=== PATIENT | female | born 1980 | race African-American/Black ===

== ENCOUNTER 2025-03-08 00:36 | Emergency (ER) | payer OTHER, SELFPAY ==
--- NOTE | ~2025-03-08 | XR_ITS ---
CLINICAL HISTORY: cough 2 view chest x-ray Comparison: None Findings: No consolidation or effusion. Mild low lung volumes. No pneumothorax. Normal size heart. No acute fracture. IMPRESSION: No consolidation. This document has been electronically signed by: Kendell Medina MD on 03/08/2025 02:20:39
[2025-03-08 00:40] VITALS: BP 93/64; PULSE 115; RESP 16; TEMP 36.3; O2SAT 97; BMI 27.5
[2025-03-08 01:30] LABS: Influenza A PCR NEGATIVE (Negative); Influenza B PCR NEGATIVE (Negative); Resp Syncy Virus RNA Qual PCR NEGATIVE (Negative); SARS COV2 PCR INHOUSE NEGATIVE (Negative)
[2025-03-08 03:05] VITALS: O2SAT 96
[2025-03-08 03:11] VITALS: BP 100/60; PULSE 108; RESP 22; TEMP 36.6; O2SAT 96
[2025-03-08] MEDS: predniSONE 20 MG TABLET 40 MG PO (03:17)
[2025-03-08] MEDS: Amoxicillin/Potassium Clav 875 MG TABLET PO (03:17)
[2025-03-08] MEDS: Albuterol Sulfate 90 MCG 8 GM INHALER 4 PUFF INHALE (03:19)
--- NOTE | 2025-03-08 03:19 | MHC.EDTECH ---
assumed care of pt
--- NOTE | 2025-03-08 03:31 | ED_ITS ---
HPI - URI/Sore Throat General Chief Complaint: Upper Respiratory Symptoms Stated Complaint: resp symptoms Time Seen by Provider: 03/08/25 02:34 Source: patient Mode of arrival: ambulatory Limitations: no limitations History of Present Illness ED Provider: HPI Narrative: Patient is smoker been coughing for last 1 week with mucopurulent phlegm no fever no chills no change in her house no history of asthma Related Data Previous Rx's ?Medication ?Instructions ?Recorded albuterol sulfate 90 mcg/actuation 2 puff inhalation Q6H PRN 03/08/25 aerosol inhaler shortness of breath or wheezing #8.5 grams amoxicillin 875 mg-potassium 1 tab PO BID #20 tabs 03/08/25 clavulanate 125 mg tablet guaifenesin 600 mg tablet, 600 mg PO BID #20 tabs 03/08/25 extended release 12 hr (Mucinex) prednisone 20 mg tablet 40 mg (2 x 20 mg) PO DAILY #10 tabs 03/08/25 Allergies Allergy/AdvReac Type Severity Reaction Status Date / Time No Known Allergies Allergy Verified 03/08/25 00:42 Review of Systems Review of Systems: Yes all other systems are reviewed and are negative [facility] Social History Social History Smoked in Last 30 Days: Yes Use of substances other than those prescribed or required for medical reasons: No Advance Directives: No Do you have a plan to hurt others: No Plan Patient : No Physical Exam Vital Signs: Vital Signs: Last Vital Signs Temp 97.8 F 03/08/25 03:11 Pulse 108 H 03/08/25 03:11 Resp 22 H 03/08/25 03:11 BP 100/60 03/08/25 03:11 Pulse Ox 96 03/08/25 03:11 O2 Del Method Room Air 03/08/25 03:11 BMI result Body Mass Index 27.5 Appearance: Alert. Oriented X3. No acute distress. Eyes: no pallor or icterus ENT: Pharynx normal Oral Mucosa moist tympanic membrane intact no erythema, Neck: Normal inspection. Neck supple. CVS: Normal heart rate and rhythm. Pulses normal. Respiratory: No respiratory distress. Equal air entry bilateral, no wheezing/rales/rhonchi prolonged expiration Abd: soft, not tender Skin: Skin warm and dry. Normal skin color. Normal skin turgor. Extremities: No lower extremity edema, no calf tenderness Neuro: Oriented X 3. Medications Administered Discontinued Medications Generic Name Dose Route Start Last Admin Trade Name Niya PRN Reason Stop Dose Admin Albuterol Sulfate 4 puff 03/08/25 02:45 03/08/25 03:19 Albuterol Sulfate 90 Mcg 8 Gm Inhaler INHALE 03/08/25 02:46 4 puff ONCE ONE Administration Amoxicillin/Clavulanate Potassium 875 mg 03/08/25 02:45 03/08/25 03:17 Amoxicillin/Potassium Clav 875 Mg Tablet PO 03/08/25 02:46 875 mg ONCE ONE Administration Prednisone 40 mg 03/08/25 02:45 03/08/25 03:17 Prednisone 20 Mg Tablet PO 03/08/25 02:46 40 mg ONCE ONE Administration Medical Decision Making Medical Decision Making [facility] Narrative: Patient has acute bronchitis chest x-ray negative for acute COVID flu RSV negative will prescribe Augmentin prednisone inhaler Lab Data [facility] Lab Attestation statement: I reviewed the patient's lab results. Labs: Lab Results 03/08/25 Range/Units 00:47 Influenza Type A (PCR) NEGATIVE (Negative) Influenza Type B (PCR) NEGATIVE (Negative) RSV RNA Qual (PCR) NEGATIVE (Negative) SARS-CoV-2 RNA (RT-PCR) NEGATIVE (Negative) Independent Interpretation I performed an independent interpretation of an: Plain X-Ray Radiology Impression Discussion of test interpretation with radiology: I have reviewed the radiologist's reading. Radiologist Impression: [place] [id number] XRay Report Signed Patient: Juany Pichardo MR#: [id number] : 1980 Acct:[id number] Age/Sex: 44 / F ADM Date: 03/08/25 Loc: HO.ED Attending Dr: Ordering Physician: Generic ED Physician Date of Service: 03/08/25 Procedure(s): XR chest 2V Accession Number(s): [id number] cc: Generic ED Physician; Physician,None ~ CLINICAL HISTORY: cough 2 view chest x-ray Comparison: None Findings: No consolidation or effusion. Mild low lung volumes. No pneumothorax. Normal size heart. No acute fracture. IMPRESSION: No consolidation. Discharge Plan Discharge Clinical Impression: Bronchitis Patient Disposition: Home, Self-Care Instructions: Acute Bronchitis (ED) Additional Instructions: Take antibiotics as prescribed Inhaler and prednisone as prescribed Stop smoking Prescriptions: New prednisone 20 mg tablet 40 mg PO DAILY Qty: 10 0RF albuterol sulfate 90 mcg/actuation HFA aerosol inhaler 2 puff inhalation Q6H PRN (Reason: shortness of breath or wheezing) Qty: 8.5 0RF amoxicillin-pot clavulanate 875-125 mg tablet 1 tab PO BID Qty: 20 0RF guaifenesin [Mucinex] 600 mg tablet extended release 12hr 600 mg PO BID Qty: 20 0RF Print Language: Turkmen
[2025-03-08 03:42] VITALS: BP 100/60; PULSE 108; RESP 22; TEMP 36.6; O2SAT 96
== END 2025-03-08 03:43 | disposition home or self-care (01) ==
PROVIDERS: Emergency Provider Internal Medicine
DX: J40 Bronchitis, not specified as acute or chronic (principal); Z03.818 Encounter for observation for suspected exposure to other biological agents ruled out; Z79.899 Other long term (current) drug therapy
CPT/HCPCS: 0241U; 71046; 99284

== ENCOUNTER → 2025-03-08 01:23 | Outpatient (BNV) | payer SELFPAY | PROVIDERS: Emergency Provider Internal Medicine; Visit Provider Radiology Neuroradiology | DX: R05.9 Cough, unspecified (principal) | CPT/HCPCS: 71046 ==

== ENCOUNTER 2025-06-22 22:09 | Emergency (ER) | payer OTHER, SELFPAY ==
[2025-06-22 22:18] VITALS: BP 138/64; PULSE 89; RESP 16; TEMP 36.7; O2SAT 97; BMI 26.8
[2025-06-22 22:51] LABS: MANUAL DIFF FLAG NO
[2025-06-22 22:52] LABS: Hematocrit 31.1 % (37.0-47.0); Hemoglobin 10.8 g/dl (12.0-16.0); Imm Gran Abs Auto 0.03 X10*3/uL (0.00-0.03); Imm Gran Pct Auto 0.3 % (0.0-0.4); Lymphocytes Absolute Auto 3.2 X10*3/uL (1.2-4.9); Mean Corpuscular HGB Conc 34.7 g/dl (31.0-35.0); Mean Corpuscular Hemoglobin 33.3 pg (27.0-33.0); Mean Corpuscular Volume 96.0 fL (80.0-98.0); NRBC Abs Auto 0.000 X10*3/uL (0.0-0.012); NRBC Pct Auto 0.0 /100WBC (0.0-0.2); Platelet Count 292 X10*3/uL (160-400); Red Blood Count 3.24 X10*6/uL (4.20-5.50); White Blood Count 9.6 X10*3/uL (4.8-10.8)
[2025-06-22 23:06] LABS: Alanine Aminotransferase 9 U/L (0-31); Albumin Level 3.8 g/dL (3.5-5.0); Alkaline Phosphatase 78 U/L (39-117); Anion Gap 16 (12-20); Aspartate Amino Transferase 12 U/L (5-31); Blood Urea Nitrogen 18 mg/dL (9-16); Calcium 8.6 mg/dL (8.4-10.2); Carbon Dioxide 20 mmol/L (22-29); Chloride 115 mmol/L (96-108); Creatinine Clr Calc Pharmacy 110.0; Estimated Glomerular Filt Rate > 60; Potassium 3.5 mmol/L (3.3-5.1); Sodium 147 mmol/L (135-145); Total Protein 6.7 g/dL (6.5-8.0)
--- NOTE | 2025-06-23 00:29 | ED_ITS ---
HPI - General Adult General Chief complaint: Skin/Abscess/Foreign Body Stated complaint: left breast cyst draining Time Seen by Provider: 06/23/25 00:15 Source: patient Mode of arrival: ambulatory Limitations: no limitations History of Present Illness ED Provider: Dr. Harkins [facility] narrative: 45-year-old female presented hospital today for drainage coming out her left breast. Patient noticed this lump earlier in May. However patient know that there is pus coming out of it. It is self draining. Patient does endorse pains around her left breast with some paresthesia around her areolar. No antibiotic taken for this abscess Related Data Previous Rx's ?Medication ?Instructions ?Recorded albuterol sulfate 90 mcg/actuation 2 puff inhalation Q 6H PRN 03/08/25 aerosol inhaler shortness of breath or wheez ing #8.5 grams amoxicillin 875 mg-potassium 1 tab PO BID #20 tabs clavulanate 125 mg tablet guaifenesin 600 mg tablet, 600 mg PO BID #20 tabs 02/21 04/17 extended release 12 hr (Mucinex) prednisone 20 mg tablet 40 mg (2 x 20 mg) PO DAILY # 10 tabs 03/08/25 cephalexin 500 mg capsule 500 mg PO Q8H 7 days #21 cap s 06/23/25 doxycycline hyclate 100 mg capsule 100 mg PO BID 7 day s #14 caps 06/23/25 Allergies Allergy/AdvReac Type Severity Reaction Status Date / Time No Known Allergies Allergy Verified 06/22/25 22:22 Review of Systems 2 Review of Systems: Pertinent review of systems as mentioned in HPI. All other system otherwise negative. [facility] Past Medical History [facility] Narrative: Medical history as mentioned in [facility] Social History Social History Smoked in Last 30 Days: Yes Use of substances other than those prescribed or required for medical reasons: No Advance Directives: No Do you have a plan to hurt others: No Plan Patient : No Physical Exam ED Exam Exam: General: Pleasant, no distress, interacting appropriately Head: Normacephalic, atraumatic Chest: Induration over the left inferior alveolar appreciated on exam. There is a spot that is spontaneous draining on exam. Skin: Warm and dry Psychiatric: Appropriate mood and thoughts Vital Signs: Vital Signs - 24 hr 06/22/25 22:18 06/23/25 00:57 06/23/25 01:02 Temperature 98.1 F 98.0 F 98.0 F Pulse Rate 89 83 83 Respiratory Rate 16 16 16 Blood Pressure 138/64 143/91 H 143/91 H Pulse Oximetry 97 98 98 Oxygen Delivery Method Room Air Room Air Room Air BMI result Body Mass Index 26.8 Medications Administered Discontinued Medications Generic Name Dose Route Start Last Admin Trade Name Freq PRN Reason Stop Dose Admin Cephalexin HCl 500 mg 06/23/25 00:28 06/23/25 00:47 Cephalexin 500 Mg Capsule PO 06/23/25 00:29 500 mg ONCE ONE Administration Doxycycline Monohydrate 100 mg 06/23/25 00:28 06/23/25 00:47 Doxycycline Monohydrate 100 Mg Capsule PO 06/23/25 00:29 100 mg ONCE ONE Administration Medical Decision Making Medical Decision Making [facility] Narrative: This 45-year-old female presented hospital today for evaluation of her left breast abscess. Patient does have signs of a left breast abscess that is spontaneously draining on exam. She does have some induration spot. From bedside pocus ultrasound I had the soft tissue. There was no signs of obvious abscess for drainage. However patient does have cobblestoning in the soft tissue indicative of infection. We will plan to give patient a dose of doxycycline and Keflex here. We will plan to discharge patient with a course of doxycycline and Keflex to take outpatient for her infection. Return precautions provided the patient. Referral to primary care doctor will be given to patient as well. Patient agrees and understands this plan all questions addressed. Lab work did not show any signs of leukocytosis for patient. Differential Diagnosis Differential Diagnoses: The differential diagnosis associated with the presentation includes Cellulitis, Breast Abscess Lab Data [facility] Lab Attestation statement: I reviewed the patient's lab results. 06/22/25 22:46 06/22/25 22:46 Labs: Lab Results 06/22/25 Range/Units 22:46 WBC 9.6 (4.8-10.8) X10*3/uL RBC 3.24 L (4.20-5.50) X10*6/uL Hgb 10.8 L (12.0-16.0) g/dl Hct 31.1 L (37.0-47.0) % MCV 96.0 (80.0-98.0) fL MCH 33.3 H (27.0-33.0) pg MCHC 34.7 (31.0-35.0) g/dl RDW 14.5 (11.0-16.0) % Plt Count 292 (160-400) X10*3/uL MPV 8.8 L (9.4-12.3) fL Immature Gran % (Auto) 0.3 (0.0-0.4) % Neut % (Auto) 59.3 (45-73) % Lymph % (Auto) 33.4 (20-40) % Addison % (Auto) 6.8 (2-11) % Eos % (Auto) 0.0 (0-4) % Baso % (Auto) 0.2 (0-2) % Lymph # (Auto) 3.2 (1.2-4.9) X10*3/uL Addison # (Auto) 0.7 (0.1-1.2) X10*3/uL Eos # (Auto) 0.0 (0.0-0.4) X10*3/uL Baso # (Auto) 0.0 (0.0-0.2) X10*3/uL Abs Immat Gran (auto) 0.03 (0.00-0.03) X10*3/uL Absolute Neuts (auto) 5.7 (2.0-8.3) x10*3/uL Absolute Nucleated RBC 0.000 (0.0-0.012) X10*3/uL Nucleated RBC % (auto) 0.0 (0.0-0.2) /100WBC Sodium 147 H (135-145) mmol/L Potassium 3.5 (3.3-5.1) mmol/L Chloride 115 H (96-108) mmol/L Carbon Dioxide 20 L (22-29) mmol/L Anion Gap 16 (12-20) BUN 18 H (9-16) mg/dL Creatinine 0.64 (0.5-1.4) mg/dL Estim Creat Clear Calc 110.0 Estimated GFR > 60 Random Glucose 100 (60-115) mg/dL Calcium 8.6 (8.4-10.2) mg/dL Total Bilirubin 0.1 (0.0-1.0) mg/dL AST 12 (5-31) U/L ALT 9 (0-31) U/L Alkaline Phosphatase 78 (39-117) U/L Total Protein 6.7 (6.5-8.0) g/dL Albumin 3.8 (3.5-5.0) g/dL Discharge Plan Discharge Clinical Impression: Abscess of skin or subcutaneous tissue Qualifiers: Site of cutaneous abscess: trunk Site of cutaneous abscess of trunk: chest wall Qualified Code(s): L02.213 - Cutaneous abscess of chest wall Cellulitis Qualifiers: Site of cellulitis: trunk Site of cellulitis of trunk: chest wall Qualified Code(s): L03.313 - Cellulitis of chest wall Patient Disposition: Home, Self-Care Instructions: Abscess (ED) Prescriptions: New doxycycline hyclate 100 mg capsule 100 mg PO BID 7 Days Qty: 14 0RF cephalexin 500 mg capsule 500 mg PO Q8H 7 Days Qty: 21 0RF No Action prednisone 20 mg tablet 40 mg PO DAILY Qty: 10 0RF albuterol sulfate 90 mcg/actuation HFA aerosol inhaler 2 puff inhalation Q6H PRN (Reason: shortness of breath or wheezing) Qty: 8.5 0RF amoxicillin-pot clavulanate 875-125 mg tablet 1 tab PO BID Qty: 20 0RF guaifenesin [Mucinex] 600 mg tablet extended release 12hr 600 mg PO BID Qty: 20 0RF Ref[facility]: [facility], [facility]] Interventions: ED Discharge Assessment Last Done: 06/23/25 01:02 Discharge Date/Time: 06/23/25 01:10 Print Language: Kyrgyz
--- OUTSIDE RECORDS SUMMARY | 2025-06-23 00:39 | XMS_ITS | Clinical Summary ---
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 Food Allergy Formula 04/29/2022 CHOCOLATE Medications No known medications Family History Medical History Relation Name Comments Diabetes Mother Relation Name Status Comments Father Alive Mother Social History Tobacco Use Types Packs/Day Years Used Date Smoking Tobacco: Some Days Cigarettes Smokeless Tobacco: Current Alcohol Use Standard Drinks/Week Comments Yes 0 (1 standard drink = 0.6 oz pur e alcohol) Comments Unknown Sex and Gender Information Value Date Recorded Sex Assigned at Not on file Legal Sex Female 12:14 AM EST Gender Identity Not on file Sexual Orientation Not on file Last Filed Vital Signs Vital Sign Reading Time Taken Comments Blood Pressure 139/108 11/20/2022 7:39 PM EST Pulse 100 11/20/2022 7:39 PM EST Temperature 37.6 C (99.7 F) 11/20/2022 5:31 PM EST Respiratory Rate 20 11/20/2022 7:39 PM EST Oxygen Saturation 96% 11/20/2022 7:39 PM EST Inhaled Oxygen Concentration - - Weight 88.5 kg (195 lb) 04/29/2022 12:24 PM EDT Height 165.1 cm (5' 5 ) 04/29/2022 12:24 PM EDT Body Mass Index 32.45 04/29/2022 12:24 PM EDT Plan of Treatment Health Maintenance Due Date Last Done Comments CT Colonography 1979 Colonoscopy 1979 Colorectal Cancer Screening 1979 FIT-DNA 1979 FIT 1979 FOBT 1979 Lipid Panel 1979 Sigmoidoscopy 1979 Tobacco Cessation Counseling 1979 Pap Smear 2000 Cervical Cancer Screening 2009 HPV/Cotest 2009 Mammogram 2019 Diabetes Screening 06/10/2021 06/10/2020 COVID-19 Vaccine ( season) 2024 01/08/2022, 04/14/2021, 03/05/2021 Depression Screening 10/24/2024 Influenza Vaccine (#1) 2025 , 08/06/2020, 08/14/2019, Additional history exists DTaP/Tdap/Td Vaccines (8 - Td or Tdap) 08/11/2025 08/11/2015, 07/08/2003, 04/23/1989, Additional history exists IPV Vaccines Completed 04/23/1989, 10/1986, 11/24/1985, Additional history exists MMR Vaccines Completed 07/08/2003, 06/24/1985 Hepatitis B Vaccines Completed 06/19/2018, 04/03/2018, 08/22/2003 Hepatitis C Screening Completed 09/08/2020, 020 HIV Screening Completed 04/30/2021 Pneumococcal Vaccine: Pediatrics (0 to 5 Years) and At-Risk Patients (6 to 49 Years) Completed 07/29/2022, 08/06/2020 HIB Vaccines Aged Out No longer eligi ble based on patient's age to complete this topic HPV Vaccines Aged Out No longer eligi ble based on patient's age to complete this topic Hepatitis A Vaccines Aged Out No long er eligible based on patient's age to complete this topic Meningococcal B Vaccine Aged Out No l onger eligible based on patient's age to complete this topic Meningococcal Vaccine Aged Out No fabienne zaire eligible based on patient's age to complete this topic Rotavirus Vaccines Aged Out No longer eligible based on patient's age to complete this topic Insurance [employer] Care 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
[2025-06-23 00:57] VITALS: BP 143/91; PULSE 83; RESP 16; TEMP 36.7; O2SAT 98
[2025-06-23 01:02] VITALS: BP 143/91; PULSE 83; RESP 16; TEMP 36.7; O2SAT 98
== END 2025-06-23 01:10 | disposition home or self-care (01) ==
PROVIDERS: Emergency Provider Student in an Organized Health Care Education/Training Program
DX: L02.213 Cutaneous abscess of chest wall (principal); Z79.899 Other long term (current) drug therapy; L03.313 Cellulitis of chest wall
CPT/HCPCS: 36415; 80053; 85025; 99283; 99284